=== PATIENT | male | born 1955 | race Caucasian/White ===

== ENCOUNTER 2018-04-19 16:48 | Inpatient (IN) | payer OTHER ==
[~2018-04-19] VITALS: Ht 177.8 cm; Wt 130.6 kg
[~2018-04-19 16:48] MED LIST: ASPIR 8181 MG PO; ASPIRIN325 PO; ATORVASTATIN CA40 MG PO; BYSTOLIC10 MG PO; COLACE100 MG PO; EFFIENT10 MG PO; GLUCOTROL5 MG PO; LIPITOR 20 MG T20 M1 PO; LIPITOR80 MG PO; LISINOPRIL10 MG PO; MULTI VITAMIN1 EACH PO; NITROGLYCERIN0.4 MG SUBLING; PROTONIX40 M1 PO; RANEXA500 MG PO; ULTRACET TABLET1 TAB PO
[2018-04-19 19:05] VITALS: BP 133/62
--- NOTE | 2018-04-19 19:23 | NUR ---
PATIENT ARRIVED TO UNIT AROUND 1830. PATIENT LYING IN BED, A&O. NC @ 2L. TURNING LATHE TENDER IN PLACE. PROVIDER NOTIFIED OF PATIENT ARRIVAL.
[2018-04-19 22:31] LABS: HEMATOCRIT 42.6 % (42.0-52.0); HEMOGLOBIN 14.5 gm/dL (14.0-18.0); MCH 30.1 pg (26.0-34.0); MCV 88.4 fL (80.0-100.0); RBC 4.82 mil/uL (4.50-6.00); RDW 13.9 % (10.5-14.5); WBC 8.9 thou/uL (4.0-11.0)
[2018-04-19] MEDS ORDERED: ASPIRIN325 PO (22:42)
[2018-04-19] MEDS ORDERED: CELEXA20 MG PO (22:42)
[2018-04-19 22:46] LABS: CHOLESTEROL 96 mg/dL (<200); HDL CHOLESTEROL 41 mg/dL (>40); LDL CHOLESTEROL 38 mg/dL (<100); TC:HDL 2.3 Ratio (Not establshd); TRIGLYCERIDE 85 mg/dL (<150); VLDL 17 mg/dL (<40)
[2018-04-19 22:48] LABS: INR 1.1; PROTIME 11.6 Seconds (9.3-11.4)
[2018-04-19 22:49] LABS: SERUM ASSESSMENT Clear
[2018-04-19] MEDS ORDERED: JARDIANCE10 MG PO (23:38)
[2018-04-20 01:59] LABS: HEMATOCRIT 40.2 % (42.0-52.0); HEMOGLOBIN 13.5 gm/dL (14.0-18.0); MCH 29.2 pg (26.0-34.0); MCHC 33.7 g/dL (28.0-37.0); MCV 86.7 fL (80.0-100.0); RBC 4.64 mil/uL (4.50-6.00); RDW 13.6 % (10.5-14.5)
[2018-04-20 02:11] LABS: CALCIUM 8.2 mg/dL (8.5-10.1); CREATININE 0.8 mg/dL (0.7-1.3); POTASSIUM 4.2 mmol/L (3.5-5.1)
--- NOTE | 2018-04-20 03:51 | NUR ---
PT ARRIVE FROM [facility] WITH CHEST PAIN. HAD RECEIVED NITRO, ASA, AND LEVONOX FROM [place]. ON UNIT HERE, PT WAS C/O DULL PRESSURE CHEST PAIN RADIATING TO HIS SHOULDERS, CHIN AND NECK AREA. DR WHITESIDE NOTIFIED. ORDERS FOR NTRO AND MYLANTA AND STAT TROPONIN GIVEN. PT REFUSED NITRO BECAUSE IT SEVERELY DROPPED HIS BP, CAUSING HIM TO HAVE N/V. PT INSTEAD IN CURRENTLY ON A HEPARIN DRIP ORDERED BY DR. WHITESIDE. CHEST PAIN SUBSIDED BY 0000, RATED AT 2/10. SO FAR TROPONINS X2 HAVE BEEN NEGATIVE. PT BEEN NPO SINCE MIDNIGHT. WILL CONTINUE TO FOLLOW POC.
[2018-04-20 05:45] VITALS: BP 146/77
--- NOTE | 2018-04-20 10:45 | EKG ---
[address] [address] ELECTROCARDIOGRAM REPORT Name: PEDRO BOATENG Room #: 207- ADM IN M.R.#: [id number] Admission: 04/19/18 Attend Phys: Kole Fontaine MD Discharge: Date of : 59 Report #: [id number] THIS REPORT FOR: //name// [facility] Test Date: 2018-04-19 Test Time: 18:25:26 Pat Name: PEDRO BOATENG Department: Room: 207 P Gender: M Continuous Churn Buttermaker: Javed GRACIA : 1955 Requested By: Kole Fontaine Order Number: [id number] MD: Jeffrey Mo Measurements Intervals [place] Rate: 78 P: 40 AR: 190 QRS: 13 QRSD: 166 T: -63 QT: 428 QTc: 488 Interpretive Statements Sinus rhythm Ventricular premature complex Probable left atrial enlargement Left bundle branch block Compared to ECG 01/14/2014 07:56:40 Ventricular premature complex(es) now present Left bundle-branch block now present Fusion complex(es) no longer present Left ventricular hypertrophy no longer present Myocardial infarct finding no longer present Electronically Signed On 04-20-2018 10:45:07 READING INTERVENTIONIST by Jeffrey Mo [email or web address] <ELECTRONICALLY SIGNED> By: Jeffrey Mo MD 04/20/18 1045 24 24 Jeffrey Mo MD /EPI
--- NOTE | 2018-04-20 10:46 | NUR ---
PT STATUS - CARDIAC W/O NEG, PT SPOKE WITH DR WHITESIDE WHO INSTRUCTED ON CHOICE OF HEART CATH WITH LOW INDICATIONS OF CARDIAC COMPLICATIONS. PT DOES NOT WHAT TO PROCEED WITH HEART CATH, PT TO STAY TODAY FOR OBSERV. SPOKE WITH DR SWANSON REGARDING PRN GI COCTAIL IF INCREASED CHEST PAIN. WILL MONITOR.
--- NOTE | 2018-04-20 11:38 | H ---
[facility] [place] [address] HISTORY AND PHYSICAL Name: PEDRO BOATENG Woody Room #: 207-P ADM IN M.R.#: [id number] Admission: 04/19/18 Attend Phys: Kole Fontaine MD Discharge: Date of : 59 Report #: [id number] THIS REPORT FOR: //name// CC: Eduardo Fontaine DATE OF SERVICE: 04/19/2018 ATTENDING PHYSICIAN: Dr. Fontaine. PRIMARY CARE PHYSICIAN: Dr. Eduardo Butts. CHIEF COMPLAINT: Chest pain. HISTORY OF PRESENT ILLNESS: The patient is a 63-year-old obese male who was at work today, driving and developed sudden onset substernal chest pain, it did radiate up into his neck and both shoulders. He describes it as a dull pressure sensation. He ended up driving back to his job site and continued to have pain, so eventually he went to the ER to be evaluated. He ended up vomiting in the ER at [facility] upon arrival and was feeling nauseated. He did receive aspirin and nitro there and his pain somewhat improved but has never completely gone away. He does have a significant cardiac history, so he was sent to [facility] to have further cardiac evaluation with his primary procurement intern, Dr. Rock. According to Dr. Rock's office records, the patient has had a prior heart attack with an initial catheterization in 2013 in which he had a 100% occluded RCA. He underwent PCI and had a stent placed into the RCA. Then in 2015, he had another catheterization after an abnormal stress test, which showed an EF of 45%-50% with 50% LAD lesion and moderate disease in the diagonal. The stent to the RCA was patent at that time. His last cardiac testing including a stress echo done in 01/2018, which was nonischemic and EF was 50% at that time with a persistent inferior wall akinesis and a left bundle-branch block. The left bundle-branch block has been documented back to 06/2017. He denies any other episodes of recent exertional chest pain. He does not have to take nitro at home. He actually says his bottle of nitroglycerin from 2013 has and that he hardly ever used it. He is currently rating his chest pain 2-3/10. He no longer has any nausea or radiation of the pain. Since arrival here, the patient has had 3 episodes of loose watery brown stool. He actually states that he had a small amount of loose stool this morning before chest pain started. He has had some lower abdominal cramping with this. He had a low-grade fever upon arrival, but did not think he had been having any fevers at home. He says he has been visiting his in a rehab facility frequently and that there have been some other patients there that have had some diarrhea illness. His has had C. diff in the past after antibiotics. PAST MEDICAL HISTORY: Hypertension, diabetes, degenerative joint disease, [facility] [address] [place] [address] HISTORY AND PHYSICAL Name: PEDRO BOATENG Room #: 207-P ADM IN M.R.#: [id number] Admission: 04/19/18 Attend Phys: Kole Fontaine MD Discharge: Date of : 59 Report #: [id number] coronary artery disease, hyperlipidemia, mild cardiomyopathy with an EF of 50% with grade 2 diastolic dysfunction. PAST SURGICAL HISTORY: Coronary stent to the RCA in 2013, carpal tunnel release, rotator cuff repair, bilateral total knee replacements. ALLERGIES: SULFA AND ADHESIVE TAPE. HOME MEDICATIONS: Atorvastatin 20 mg daily, nebivolol 10 mg daily, lisinopril 10 mg daily, Ultracet 37.5/325 one tab t.i.d., citalopram 20 mg daily, Colace 100 mg at bedtime, Protonix 40 mg daily, Jardiance unknown dose daily and glipizide 5 mg daily, multivitamin daily, aspirin 325 mg daily. SOCIAL HISTORY: The patient is a never smoker, denies any alcohol or drug use. He lives at home with his who he recently had to place in the rehab after multiple hospitalizations. He currently works in [employer]. FAMILY HISTORY: Significant for heart disease in his grandfather and his brothers who had heart attacks in their 50s, his grandmother had cancer and another grandmother had diabetes. His mother is alive with hypertension and atrial fibrillation. His father is alive and healthy. REVIEW OF SYSTEMS: The patient has noticed an upper body rash across his upper torso and into his upper arms. It is pruritic at times. He is wondering if it possibly has to do with the medication, Jardiance which he started about a year ago and he thinks that is when the rash started appearing. All other 12-point review of systems was reviewed with the patient and otherwise negative unless stated in the HPI. PHYSICAL EXAMINATION: GENERAL: The patient is an alert, obese male in no acute distress. VITAL SIGNS: Temperature is 100.3, heart rate is 82, respirations 22, blood pressure 133/62, oxygen 93% on room air. HEENT: PERRLA. Sclerae are nonicteric. Oral mucosa is pink and moist. NECK: Supple, no JVD noted. CARDIOVASCULAR: Normal S1, S2. No murmurs, rubs or gallops. RESPIRATORY: Breath sounds are clear bilaterally. No wheezing or rhonchi. Breathing is nonlabored. He is diminished in the bases. ABDOMEN: Obese, soft, and nontender with positive bowel sounds. VASCULAR: No edema noted. Pedal pulses are 2+. NEUROLOGIC: The patient is alert and oriented x 3. Speech is clear. He is moving all extremities equally. No focal neuro deficits noted. SKIN: Intact without any open wounds. He does have a macular type rash across his upper torso and into his upper arms that is pale pink in color. LABORATORY DATA AND DIAGNOSTICS: Lab work done at [facility] showed a WBC of 13.7, [facility] [address] [place] [address] HISTORY AND PHYSICAL Name: BOATENGPEDRO P Room #: 207-P [facility] IN [facility].#: [id number] Admission: 04/19/18 Attend Phys: Kole Fontaine MD Discharge: Date of : 59 Report #: [id number] hemoglobin 15.1, platelets 223. Sodium is 140, potassium 4.2, BUN 16, creatinine 0.8, glucose 127. LFTs are within normal limits. Magnesium 2.1. CK is 159. BNP is 353. Troponin 0.017. INR 1.09. EKG showed a sinus rhythm at a rate of 78 with a left bundle-branch block and chest x-ray is negative. ASSESSMENT AND PLAN: 1. Chest pain. The patient does have a significant cardiac history with a prior stent. His initial troponin was negative. We will follow serial cardiac enzymes here. Consult Cardiology and continue aspirin daily and nitro p.r.n. Heparin drip per Cardiology since the patient is still having active chest pain. 2. Hypertension. Blood pressure is stable, continue home medications and continue to monitor. 3. Hyperlipidemia. Check lipid panel and continue statin therapy. 4. Diabetes type 2. Blood sugars are controlled. Continue home p.o. meds. He does not take any insulin. We will add insulin per sliding scale and follow Accu-Cheks. Check hemoglobin A1c. 5. Diarrhea. He has had exposure to Clostridium difficile, although he denies any recent antibiotics. We will check stool for C. diff. 6. Obesity. 7. Ischemic cardiomyopathy. Last known EF was 50% on a stress echo in 01/2018. He is not on any diuretics, BNP is mildly elevated and he does not have any restricted fluid overload. 8. Left bundle-branch block. This does not appear to be new as this has been documented dating back to 06/2017. Continue to monitor on telemetry. 9. Deep vein thrombosis prophylaxis. Continue heparin. We will continue to follow the patient closely throughout the hospitalization and make changes based on clinical status. Thank you very much. <ELECTRONICALLY SIGNED> By: FELIBERTO Whitney 04/20/18 1138 [id number] 0724 FELIBERTO Whitney /nt
--- NOTE | 2018-04-20 14:19 | NUR ---
CDIFF TESTING, LAB STATES THEY NEED > THAN 3 LOOSE STOOLS IN A 24HR PERIOD FOR SPEC TO BE VALID. HAVE SENT 2 SPEC AND BOTH WERE REJECTED PER LABS NEW POLICY.
[2018-04-20 15:25] VITALS: BP 120/80
[2018-04-20 21:14] VITALS: BP 116/80
[2018-04-21 00:10] LABS: GLYCOHEMOGLOBIN (HGB A1C) 6.7 % (4.8-5.6)
--- NOTE | 2018-04-21 04:02 | NUR ---
ASSUMED CARE 1900. PT ALERT AND ORIENTED. DENIES SOB, BUT REPORTS A MILD CHEST PRESSURE PAIN AT A 2/10. PT SEEN CARDIOLOGY YESTERDAY, PT STAYED OVERNIGHT FOR OBSERVATION. NSR, WITH BBB ON THE MONITOR. VITALS STABLE. NO ANY FURTHER CONCERNS REPORTED BY THE PT AT THIS TIME. WILL CONTINUE TO MONITOR AND FOLLOW PLAN OF CARE.
[2018-04-21 05:05] VITALS: BP 157/78
[2018-04-21 07:55] VITALS: BP 141/80
--- NOTE | 2018-04-21 08:28 | HC ---
[facility] [place] [address] CONSULTATION Name: BOATENGPEDRO Woody Room #: 207-P [facility] IN .R.#: [id number] Admission: 04/19/18 Attend Phys: Kole Fontaine MD Discharge: Date of : 59 Report #: [id number] THIS REPORT FOR: //name// CC: Eduardo Fontaine DATE OF SERVICE: 04/20/2018 INDICATION: Chest pain. HISTORY OF PRESENT ILLNESS: This 63-year-old gentleman with a history of CAD, diabetes mellitus, presenting with chest pain. Last evening, he developed a discomfort in the substernal/epigastric area, radiating up into the neck area. It persisted all night long. There were no alleviating or aggravating factors. He did have 4 episodes of diarrhea during this time. He felt some mild abdominal discomfort. He denies any fever, cough, dyspnea, diaphoresis, palpitations, or congestion. He was initially evaluated in the ER at [facility], the initial troponin level was negative. He was transferred to [facility] for further evaluation. He has had 3 sets of troponin levels, are negative. ECG reveals a left bundle branch block, which is old. PAST MEDICAL HISTORY: Inferior wall MN in 2013, undergoing stent placement to the RCA. Cardiac catheterization in 2015 revealed a patent stent and no severe coronary artery disease. Last stress test was in 01/23/[address] Rock, negative. History of diabetes mellitus, hypertension, hypercholesterolemia and GERD. ALLERGIES: INCLUDE SULFA. MEDICATIONS: At home include aspirin, Lipitor 20, Bystolic 10, glipizide, lisinopril 10, Protonix 40. SOCIAL HISTORY: Denies tobacco use. FAMILY HISTORY: Negative for premature CAD. REVIEW OF SYSTEMS: A full 10-point review of systems is performed. Only the pertinent positives and negatives are described in the HPI. PHYSICAL EXAMINATION: VITAL SIGNS: Blood pressure is 140/70, heart rate is 80 beats per minute. GENERAL APPEARANCE: An overweight male in no acute respiratory distress. HEENT: Normocephalic, atraumatic. Oral mucosa moist. NECK: Supple. LUNGS: Clear to auscultation. [facility] [address] [place] [address] CONSULTATION Name: PEDRO BOATENG Room #: 207-P [facility] IN [facility].#: [id number] Admission: 04/19/18 Attend Phys: Kole Fontaine MD Discharge: Date of : 59 Report #: [id number] CARDIAC: Regular rate and rhythm, S1, S2 positive. ABDOMEN: Soft, nontender. EXTREMITIES: No cyanosis, positive edema. NEUROLOGIC: Alert and oriented x 3 ECG reveals sinus rhythm, left bundle branch block. LABORATORY VALUES: Serial troponin levels are negative. White count 7.0, hemoglobin is 13.5, sodium is 139, creatinine 0.8. ASSESSMENT AND PLAN: 1. Chest pain syndrome, I do not believe this is cardiac related. He has had pain for greater than 10 hours of duration and serial troponin levels are negative. He had a recent stress echo, but within 3 months, negative for ischemia. 2. GI/diarrhea, would allow the patient to eat and see how he responds. Denies any fever or chills. Check cultures. 3. Coronary artery disease/myocardial infarction, appears to be stable at this time. Continue with aspirin. 4. Hypertension. The blood pressure is on the low side, would hold his medications. He did have an episode of hypotension at [place] when he was given nitroglycerin. I suspect he has diminished intravascular volume attributed to his recent episodes of diarrhea. Hold his blood pressure medications. 5. Diabetes mellitus, continue with his hypoglycemics. <ELECTRONICALLY SIGNED> By: Jeffrey Mo MD 04/21/18 0828 [id number] Jeffrey Mo MD /nt
[2018-04-21] MEDS ORDERED: NITROGLYCERIN0.4 MG SUBLING (10:59)
[2018-04-21] MEDS ORDERED: ASPIRIN325 PO (10:59)
[2018-04-21 12:06] VITALS: BP 141/80
== END 2018-04-21 13:59 | disposition home or self-care (01) | DRG 392 ==
LOC: 2N 16:48
PROVIDERS: Internal Medicine Cardiovascular Disease; Nurse Practitioner Acute Care; ADMIT Internal Medicine
DX: A08.4 Viral intestinal infection, unspecified (principal); Z68.41 Body mass index [BMI] 40.0-44.9, adult; I25.10 Atherosclerotic heart disease of native coronary artery without angina pectoris; I10 Essential (primary) hypertension; E78.00 Pure hypercholesterolemia, unspecified; K21.9 Gastro-esophageal reflux disease without esophagitis; M19.90 Unspecified osteoarthritis, unspecified site; E78.5 Hyperlipidemia, unspecified; Z96.653 Presence of artificial knee joint, bilateral; E66.9 Obesity, unspecified; I25.5 Ischemic cardiomyopathy; I44.7 Left bundle-branch block, unspecified; E11.649 Type 2 diabetes mellitus with hypoglycemia without coma; I25.2 Old myocardial infarction; Z95.5 Presence of coronary angioplasty implant and graft; Z88.2 Allergy status to sulfonamides; Z82.49 Family history of ischemic heart disease and other diseases of the circulatory system; Z79.899 Other long term (current) drug therapy
CPT/HCPCS: 10081